=== PATIENT | male | born 2000 | race Two or more races ===

== ENCOUNTER 2022-09-04 20:47 | Emergency (ER) | payer OTHER ==
[~2022-09-04] VITALS: Ht 170.2 cm; Wt 70.5 kg
[2022-09-04 21:30] VITALS: PULSE 80; RESP 16; O2SAT 96
[2022-09-05] MEDS ORDERED: KETOROLAC TROMETH 60MG/2ML VIAL IM ONE (00:45)
[2022-09-05] MEDS ORDERED: ACETAMINOPHEN 500 MG TAB PO ONE (00:45)
[2022-09-05] MEDS ORDERED: IBUP-1455 PO (00:45)
[2022-09-05] MEDS ORDERED: HYDR-4798 PO (00:45)
[2022-09-05 01:00] VITALS: BP 119/65; PULSE 75; RESP 15; TEMP 98.4; O2SAT 96
== END 2022-09-05 07:41 | disposition home or self-care (01) ==
LOC: ER 20:47
DX: S82.092A Other fracture of left patella, initial encounter for closed fracture (principal); S16.1XXA Strain of muscle, fascia and tendon at neck level, initial encounter; T14.8XXA Other injury of unspecified body region, initial encounter; Z88.0 Allergy status to penicillin; W18.39XA Other fall on same level, initial encounter; Y93.89 Activity, other specified; Y92.89 Other specified places as the place of occurrence of the external cause; Y99.8 Other external cause status
CPT/HCPCS: 29505; 70450; 70486; 71250; 72125; 73562; 74176; 96372; 99285; J1885